=== PATIENT | female | born 1985 | race Caucasian/White ===

== ENCOUNTER → 2023-04-30 | Outpatient (CLI) | payer OTHER ==
--- NOTE | 2023-04-30 19:01 | CT ---
EXAMINATION TYPE: CT brain wo/w con CT DLP: 2217.0 mGycm, Automated exposure control for dose reduction was used. DATE OF EXAM: 04/30/2023 5:53 PM COMPARISON: None. CLINICAL INDICATION:Female, 38 years old with history of R79.89 SPECIFIED ABNORMAL FINDINGS OF BLOOD, N92.6; PHH, Not sleeping, hot flashes, no period x 8 months TECHNIQUE: Axial CT images of the brain were obtained with coronal and sagittal reformats created and reviewed. Contrast used:100 cc mL of Isovue 300 without and with IV Contrast, Oral contrast used: none. FINDINGS: Extra-axial spaces: No abnormal extra-axial fluid collections. Ventricular system: Within normal limits Cerebral parenchyma: No discrete pituitary mass visualized. No acute intraparenchymal hemorrhage or m ass effect. The araujo-white junction is well differentiated. No abnormal enhancement is seen after th e administration of intravenous contrast. Cerebellum: Unremarkable. Mass effect: No evidence of midline shift. Intracranial vasculature: unremarkable Soft tissues: Normal. Calvarium/osseous structures: No depressed skull fracture. Paranasal sinuses and mastoid air cells: Clear. Visualized orbits: Orbital contents are intact. IMPRESSION: 1. No acute intracranial process. 2. No discrete mass visualized. There are is concern for a pituitary Mass. Consider a more sensitive MRI pituitary gland protocol.
== END | disposition home or self-care (01) ==
LOC: RADCTMAIN 17:15
PROVIDERS: ATTEND Family Medicine
DX: N92.6 Irregular menstruation, unspecified (principal); R79.89 Other specified abnormal findings of blood chemistry; R32 Unspecified urinary incontinence
CPT/HCPCS: 70470; Q9967